=== PATIENT | female | born 1985 | race Caucasian/White ===

== ENCOUNTER 2017-02-02 08:49 | Emergency (ER) | payer BC, MEDICAID, OTHER ==
[2017-02-02] MEDS ORDERED: Sodium Chloride 0.9% 1000 ML 1,000 ML IV STA (09:10)
[2017-02-02] MEDS ORDERED: Sodium Chloride 0.9% 1000 ML 1,000 ML ONE (09:12)
--- NOTE | 2017-02-02 09:17 | ERPHSYRPT ---
- History of Present Illness Time Seen by Provider: 02/02/17 09:05 Source: patient Exam Limitations: no limitations Patient Subjective Stated Complaint: pt states she has been vomiting related to . reports she is 9 weeks and has been vomiting since 5 weeks gestation. reports 10lb weight loss. states she is on reglan but it is not helping. reports intermittent cramping and abd pain. reports hx of hyperemesis in previous and a reglan pump in place at that time. Triage Nursing Assessment: pt is aox3, resps easy and non labored, radial pulses strong and equal, lung sounds clear and equal bilat, abd is soft and non tender, bowel sounds present and normoactivex4. Physician History: This is a 31-year-old white female 2 para 1 last menstrual period November 01 estimated date of confinement September 03, 2017. Patient states that she has been vomiting since she is 5 weeks she states that she is now 9 weeks . Patient states that she is on Reglan she has an [employer] physician however it is changing to Dr. Kennedy. She states she has lost 10 pounds weight since being She states she was on an infusion pump in the past secondary to vomiting during . Past medical history includes hypothyroid,. Past surgical history includes cholecystectomy. Timing/Duration: other (chronic vomiting during for the past month) Severity: moderate Modifying Factors: Worsens With: eating, immobilization, medication, movement, rest, acetaminophen, ibuprofen, nothing Associated Symptoms: nausea, vomiting, No abdominal pain, No shortness of breath , No heartburn, No diaphoresis, No cough, No chills, No chest pain, No fever, No headaches, No loss of appetite, No malaise, No rash, No syncope, No seizure, No weakness Allergies/Adverse Reactions: promethazine [From Phenergan] Adverse Reaction (Verified 02/02/17 09:04) Home Medications: Metoclopramide HCl [Reglan] 40 mg PO DAILY 02/02/17 [History] Hx Tetanus, Diphtheria Vaccination/Date Given: Yes Hx Influenza Vaccination/Date Given: Yes Hx Pneumococcal Vaccination/Date Given: No Immunizations Up to Date: Yes - Review of Systems Constitutional: No Fever, No Chills Eyes: No Symptoms Ears, Nose, & Throat: No Symptoms, No Ear Pain, No Ear Discharge, No Hearing Changes, No Tinnitus, No Nose Pain, No Nose Congestion, No Nose Discharge, No Sinus Drainage, No Epistaxis, No Mouth Pain, No Mouth Swelling, No Loose Teeth, No Throat Pain, No Throat Swelling, No Hoarse, No Painful Swallowing, No Snoring , No Stridor Respiratory: No Cough, No Dyspnea Cardiac: No Chest Pain, No Edema, No Syncope Abdominal/Gastrointestinal: Nausea, Vomiting, No Abdominal Pain, No Diarrhea, No Constipation, No Hematemesis, No Hematochezia, No Melena, No Dysphagia, No Appetite Changes Genitourinary Symptoms: (patient states she is 9 weeks ), No Dysuria, No Frequency, No Hematuria, No Hesitancy, No Incontinence, No Urgency, No Urinary Retention, No Flank Pain, No Menorrhagia, No Vaginal Bleeding, No Vaginal Discharge, No Vaginal Itching Musculoskeletal: No Back Pain, No Neck Pain Skin: No Rash Neurological: No Dizziness, No Focal Weakness, No Sensory Changes Psychological: No Symptoms Endocrine: No Symptoms All Other Systems: Reviewed and Negative - Past Medical History Pertinent Past Medical History: Yes Endocrine Medical History: Hypothyroidism - Past Surgical History Past Surgical History: Yes Gastrointestinal: Cholecystectomy - Social History Smoking Status: Never smoker Drug Use: none Patient Lives Alone: No - Female History Expected Date of Delivery: 09/03/16 - Nursing Vital Signs Nursing Vital Signs: Initial Vital Signs Temperature 99.1 F 02/02/17 08:55 Pulse Rate 96 H 02/02/17 08:55 Respiratory Rate 20 02/02/17 08:55 Blood Pressure 128/62 02/02/17 08:55 O2 Sat by Pulse Oximetry 98 02/02/17 08:55 Pain Scale Pain Intensity 2 - Physical Exam General Appearance: no apparent distress, alert Eye Exam: PERRL/EOMI, eyes nml inspection Ears, Nose, Throat Exam: normal ENT inspection, TMs normal, pharynx normal, moist mucous membranes Neck Exam: normal inspection, non-tender, supple, full range of motion Respiratory Exam: normal breath sounds, lungs clear, No respiratory distress Cardiovascular Exam: regular rate/rhythm, normal heart sounds, normal peripheral pulses Gastrointestinal/Abdomen Exam: soft, normal bowel sounds, No tenderness, No mass Back Exam: normal inspection, normal range of motion, No CVA tenderness, No vertebral tenderness Extremity Exam: normal inspection, normal range of motion, pelvis stable Neurologic Exam: alert, oriented x 3, cooperative, normal mood/affect, nml cerebellar function, nml station & gait, sensation nml, No motor deficits Skin Exam: normal color, warm, dry, No rash Lymphatic Exam: No adenopathy SpO2 Interpretation: normal (98%) SpO2: 98 Oxygen Delivery: Room Air Ordered Tests: Active Orders 24 hr Category Date Time Status Heart Tones-ED STAT Care 02/02/17 09:12 Active IV Insertion STAT Care 02/02/17 09:10 Active Orthostatic Vital Signs STAT Care 02/02/17 09:11 Active AMYLASE Stat Lab 02/02/17 09:20 Completed CBC W DIFF Stat Lab 02/02/17 09:20 Completed CMP Stat Lab 02/02/17 09:20 Completed CULTURE,URINE Stat Lab 02/02/17 10:00 Received HCG, Quantitative (Inhouse) Stat Lab 02/02/17 09:20 Completed LIPASE Stat Lab 02/02/17 09:20 Completed T4 Stat Lab 02/02/17 09:20 Completed TSH [TSH, 3RD Generation] Stat Lab 02/02/17 09:20 Completed UA W/ MICROSCOPIC Stat Lab 02/02/17 10:00 Completed Medication Summary Discontinued Medications Generic Name Dose Route Start Last Admin Trade Name Freq PRN Reason Stop Dose Admin Sodium Chloride 1,000 mls @ 999 mls/hr 02/02/17 09:10 02/02/17 09:26 Sodium Chloride 0.9% 1000 Ml IV 02/02/17 10:10 999 mls/hr .Q1H1M STA Administration Sodium Chloride Confirm 02/02/17 09:12 Sodium Chloride 0.9% 1000 Ml Administered 02/02/17 09:13 Dose 1,000 mls @ ud .ROUTE .K-MED ONE Lab/Rad Data: Laboratory Result Diagrams 02/02/17 09:20 02/02/17 09:20 Laboratory Results 02/02/17 02/02/17 02/02/17 Range/Units 10:00 09:20 09:20 WBC (4.0-10.5) K/mm3 RBC (4.1-5.4) M/mm3 Hgb (12.0-16.0) gm/dl Hct (35-47) % MCV (78-100) fl MCH (26-32) pg MCHC (32-36) g/dl RDW (11.5-14.0) % Plt Count (150-450) K/mm3 MPV (6-9.5) fl Gran % (36.0-66.0) % Lymphocytes % (24.0-44.0) % Monocytes % (0.0-12.0) % Eosinophils % (0.00-5.0) % Basophils % (0.0-0.4) % Basophils # (0-0.4) Sodium 137 (136-145) mEq/L Potassium 3.5 (3.5-5.1) mEq/L Chloride 103 (98-107) mEq/L Carbon Dioxide 24.1 (21-32) mEq/L Anion Gap 13.6 (5-15) MEQ/L BUN 5 L (9-20) mg/dL Creatinine 0.62 (0.55-1.30) mg/dl Estimated GFR > 60 ML/MIN Glucose 129 H (70-110) MG/DL Calcium 8.7 (8.5-10.1) mg/dL Total Bilirubin 0.50 (0.2-1.0) mg/dL AST 18 (15-37) U/L ALT 34 (12-78) U/L Alkaline Phosphatase 59 (46-116) U/L Serum Total Protein 7.0 (6.4-8.2) gm/dL Albumin 3.4 (3.4-5.0) g/dL Amylase 63 (25-115) U/L Lipase 137 (73-393) U/L Thyroxine (T4) 15.7 (4.7-13.3) UG/DL TSH 3rd Generation 1.344 (0.358-3.740) mIU/L Beta HCG, Quant [id number] H (0-6) IU/L Ur Collection Type VOID Urine Color YELLOW (YELLOW) Urine Appearance HAZY (CLEAR) Urine pH 7.0 (5-6) Ur Specific [place] 1.010 (1.005-1.025) Urine Protein TRACE (Negative) Urine Ketones NEGATIVE (NEGATIVE) Urine Blood 5-10 (0-5) Manny/ul Urine Nitrite NEGATIVE (NEGATIVE) Urine Bilirubin SMALL (NEGATIVE) Urine Urobilinogen 4 (0-1) mg/dL Ur Leukocyte Esterase TRACE (NEGATIVE) Urine Microscopic RBC 5-10 (0-2) /HPF Urine Microscopic WBC 5-10 (0-5) /HPF Ur Epithelial Cells MANY (FEW) /HPF Amorphous Crystals MANY (NEGATIVE) /HPF Urine Bacteria MANY (NEGATIVE) /HPF Urine Culture Reflexed YES (NO) Urine Glucose NEGATIVE (NEGATIVE) mg/dL Specimen Received 02/02/17 100 02/02/17 Range/Units 09:20 WBC 5.6 (4.0-10.5) K/mm3 RBC 3.79 L (4.1-5.4) M/mm3 Hgb 12.1 (12.0-16.0) gm/dl Hct 34.6 L (35-47) % MCV 91.3 (78-100) fl MCH 31.9 (26-32) pg MCHC 35.0 (32-36) g/dl RDW 11.9 (11.5-14.0) % Plt Count 124 L (150-450) K/mm3 MPV 10.8 H (6-9.5) fl Gran % 81.8 H (36.0-66.0) % Lymphocytes % 11.2 L (24.0-44.0) % Monocytes % 5.9 (0.0-12.0) % Eosinophils % 0.7 (0.00-5.0) % Basophils % 0.4 (0.0-0.4) % Basophils # 0.02 (0-0.4) Sodium (136-145) mEq/L Potassium (3.5-5.1) mEq/L Chloride (98-107) mEq/L Carbon Dioxide (21-32) mEq/L Anion Gap (5-15) MEQ/L BUN (9-20) mg/dL Creatinine (0.55-1.30) mg/dl Estimated GFR ML/MIN Glucose (70-110) MG/DL Calcium (8.5-10.1) mg/dL Total Bilirubin (0.2-1.0) mg/dL AST (15-37) U/L ALT (12-78) U/L Alkaline Phosphatase (46-116) U/L Serum Total Protein (6.4-8.2) gm/dL Albumin (3.4-5.0) g/dL Amylase (25-115) U/L Lipase (73-393) U/L Thyroxine (T4) (4.7-13.3) UG/DL TSH 3rd Generation (0.358-3.740) mIU/L Beta HCG, Quant (0-6) IU/L Ur Collection Type Urine Color (YELLOW) Urine Appearance (CLEAR) Urine pH (5-6) Ur Specific [place] (1.005-1.025) Urine Protein (Negative) Urine Ketones (NEGATIVE) Urine Blood (0-5) Manny/ul Urine Nitrite (NEGATIVE) Urine Bilirubin (NEGATIVE) Urine Urobilinogen (0-1) mg/dL Ur Leukocyte Esterase (NEGATIVE) Urine Microscopic RBC (0-2) /HPF Urine Microscopic WBC (0-5) /HPF Ur Epithelial Cells (FEW) /HPF Amorphous Crystals (NEGATIVE) /HPF Urine Bacteria (NEGATIVE) /HPF Urine Culture Reflexed (NO) Urine Glucose (NEGATIVE) mg/dL Specimen Received - Progress Progress: improved Progress Note: 02/02/17 10:53 This is a 31-year-old white female 2 para 1 who is 9 weeks . She states that she's been vomiting since she was 5 weeks . She apparently has seen her [employer] doctor yesterday. Was noted have a 10 pound weight loss and apparently had had a discussion with the [employer] physician. Patient is on metoclopramide for her vomiting. She states that she is planning to see Dr. Kennedy on 16 February 2017. She is here stating she is vomiting she has no pain. On physical examination patient is alert oriented 3 vitals are normal. Patient has heart tones obtained by the nurse of 165 Patient's chemistry is essentially normal other than a glucose of 129 patient has 5-10 white cells and 5-10 red cells in her urine negative nitrites. Patient's white count 5.6 hemoglobin 12.1 hematocrit 34.6 Patient's quantitative hCG is elevated at 175,559. Patient states she has had an ultrasound by her [employer] physician Patient is given 1 L of normal saline in the emergency room. I have discussed the possibility of Zofran versus continuing her metoclopramide , and I have addressed recent reports of possible adverse effects listed in the literature however the Zofran continues to be class B. patient wishes to stay on her metoclopramide at this point. Patient appears to be stable at this point she does state that she had been on an infusion pump in the past for her nausea. She did see her [employer] physician yesterday. Will send patient home plenty of fluids clear fluids only 24-48 hours if nausea and vomiting. Will start Macrobid for the patient's urinary tract infection. Urine culture is pending patient is to follow-up with her [employer] physician or Dr. Kennedy. She is return for acute distress or for severe symptoms. - Departure Time of Disposition: 10:59 Departure Disposition: Home Clinical Impression: Vomiting Qualifiers: Vomiting type: unspecified Vomiting Intractability: non-intractable Nausea presence: with nausea Qualified Code(s): R11.2 - Nausea with vomiting, unspecified Qualifiers: Weeks of gestation: 9 weeks Qualified Code(s): Z3A.09 - 9 weeks gestation of UTI (urinary tract infection) Qualifiers: Urinary tract infection type: site unspecified Hematuria presence: without hematuria Qualified Code(s): N39.0 - Urinary tract infection, site not specified Condition: Fair Critical Care Time: No Referrals: CHRISTIANNE KENNEDY [Primary Care Provider] - Additional Instructions: Return home. Plenty of fluids. Clear fluids only 24-48 hours if nausea and vomiting. Metoclopramide as prescribed by your [employer] physician. Macrobid 100 mg orally twice a day for 10 days. Follow-up with your [employer] physician or Dr. Kennedy . call today and schedule follow-up appointment. return for acute distress or for severe symptoms Prescriptions: Nitrofurantoin Macro 100 mg [Macrobid 100MG Capsule] 100 mg PO BID #20 capsule
[2017-02-02 09:26] LABS: BASOPHIL % 0.4 % (0.0-0.4); Eosinophil % 0.7 % (0.00-5.0); Granulocytes % 81.8 % (36.0-66.0); Lymphocytes % 11.2 % (24.0-44.0); Mean Cell Volume 91.3 fl (78-100); Mean Corpuscular Hemoglobin 31.9 pg (26-32); Mean Platelet Volume 10.8 fl (6-9.5); Monocytes % 5.9 % (0.0-12.0); Platelet Count 124 K/mm3 (150-450); Red Blood Count 3.79 M/mm3 (4.1-5.4); Red Cell Distribution Width 11.9 % (11.5-14.0); White Blood Count 5.6 K/mm3 (4.0-10.5)
[2017-02-02 09:47] LABS: ALBUMIN 3.4 g/dL (3.4-5.0); ANION GAP 13.6 MEQ/L (5-15); BLOOD UREA NITROGEN 5 mg/dL (9-20); CHLORIDE 103 mEq/L (98-107); Carbon Dioxide 24.1 mEq/L (21-32); Glucose 129 MG/DL (70-110); LIPASE 137 U/L (73-393); Potassium 3.5 mEq/L (3.5-5.1); SGOT/AST 18 U/L (15-37); SGPT/ALT 34 U/L (12-78); SODIUM 137 mEq/L (136-145)
[2017-02-02 10:07] LABS: Collection Type VOID; Leukocyte Esterase TRACE (NEGATIVE)
[2017-02-02 10:08] LABS: ADD URINE CULTURE? YES (NO); Bilirubin SMALL (NEGATIVE); COMPLETE URINE MICROSCOPIC? YES; Glucose NEGATIVE (NEGATIVE)
[2017-02-02 10:22] LABS: Bacteria MANY /HPF (NEGATIVE); Epithelial Cells MANY /HPF (FEW)
[2017-02-02 10:26] LABS: ALKALINE PHOSPHATASE 59 U/L (46-116); HCG, Quantitative (Inhouse) 175559 IU/L (0-6)
[2017-02-02 11:16] VITALS: BP 122/69; PULSE 68; O2SAT 100
== END 2017-02-02 11:16 | disposition home or self-care (01) ==
LOC: ED 08:49
DX: O23.41 Unspecified infection of urinary tract in pregnancy, first trimester (principal); Z3A.09 9 weeks gestation of pregnancy; R11.2 Nausea with vomiting, unspecified
CPT/HCPCS: 36000; 36415; 80053; 81000; 82150; 83690; 84436; 84443; 84702; 85025; 87086; 96360; 99284